=== PATIENT | male | born 1955 | race Caucasian/White ===

== ENCOUNTER 2017-01-24 08:18 | Outpatient (CLI) | payer OTHER ==
--- NOTE | 2017-01-24 14:34 | Diagnostic Imaging Report ---
DIANELYS VASQUEZ [facility] [address] [facility] [address] [address] Report Submission Date: Jan 24, 2017 8:56:30 AM CDT Patient Study Name: RICHMOND CHENG Date: Jan 24, 2017 8:30:30 AM CDT Modality Type: US Gender: M Description: US ABD LIMITED : 59 Institution: [facility] Physician: DIANELYS VASQUEZ Examination: Ultrasound gallbladder History: Epigastric discomfort Findings: Sonographic evaluation of the right upper quadrant demonstrates the gallbladder without stones or sludge. Gallbladder wall measures 2.3 mm. Common bile duct measures 2.6 mm. No intrahepatic biliary dilation. Liver demonstrates normal homogeneous echogenicity. No mass or cyst. Normal flow on color analysis. Normal Doppler waveforms. Right kidney measures 10.0 cm in length. No cortical mass. 4.0 mid renal cortical cyst. No hydronephrosis. Pancreatic region without gross irregularity. Impression: No gallstone or obstruction. Right renal cortical cyst. Electronically signed on Jan 24, 2017 8:56:30 AM CDT by: Db BAILEY
== END 2017-01-24 08:20 ==
LOC: RAD 08:18
PROVIDERS: ATTEND Family Medicine
DX: R10.11 Right upper quadrant pain (principal)
CPT/HCPCS: 76705

== ENCOUNTER 2017-02-08 08:05 | Outpatient (CLI) | payer OTHER ==
[2017-02-08 08:49] LABS: eGFR (African) > 60; eGFR (Non-African) > 60
--- NOTE | 2017-02-08 11:55 | Diagnostic Imaging Report ---
DIANELYS VASQUEZ - GOSIA [facility] [address] [facility] [address] [place] [address]. [id number] Report Submission Date: Feb 08, 2017 10:51:09 AM CDT Patient Study Name: RICHMOND CHENG Date: Feb 08, 2017 9:56:09 AM CDT Modality Type: CT\SR Gender: M Description: CT ABD & PELVIS W/ CON : 59 Institution: [facility] Physician: DIANELYS VASQUEZ - GOSIA Examination: CT Abdomen/pelvis History: Right abdominal discomfort Comparison exams: None available Technique: CT Abdomen/pelvis with IV protocol. Findings: Liver demonstrates diffuse low attenuation. No central enhancing lesion. Spleen, adrenals, pancreas, and gallbladder are without gross irregularity. No abnormal enhancement. Right renal cyst measuring 3.2 cm. No abnormal cortical enhancement. No suspicious calcifications. Ureters are nondilated in their course through the abdomen and pelvis. Bladder margin within normal limits. No gallstone. Abdominal aorta without aneurysmal dilation. Minimal peripheral atherosclerotic disease. Cardiac silhouette is not enlarged. No pericardial effusion. Contrast within the bowel. Few loops of mildly prominent small bowel within the left midabdomen few air-fluid levels. Stool within the large bowel limiting sensitivity. No mesenteric inflammatory changes or free fluid. Appendix is visualized and is without inflammatory changes. Sigmoid diverticula. No adjacent inflammation. Osseous structures demonstrate degenerative changes. Lung bases without infiltrate. No effusion. Impression: Few loops of mildly prominent small bowel with air fluid levels within the left midabdomen - suggestive for mild enteritis. No obstruction. No abdominal mass or inflammatory process. No gallstone. No renal calcifications or abnormal ureteric dilation. Fatty liver. Right renal cyst. Electronically signed on Feb 08, 2017 10:51:09 AM CDT by: Db BAILEY
== END 2017-02-08 08:06 ==
LOC: RAD 08:05
PROVIDERS: ATTEND Family Medicine
DX: R10.11 Right upper quadrant pain (principal)
CPT/HCPCS: 36415; 74177; 82565; Q9966; A9698

== ENCOUNTER 2017-02-28 12:17 | Day surgery (SDC) | payer OTHER ==
[~2017-02-28 12:17] MED LIST: LACTATED RINGERS 1,000 ML IV.SOLN IV ONE; LIDOCAINE HCL/PF 2% 100 MG/5 ML VIAL IJ ONE; PROPOFOL 200 MG/20 ML VIAL IV ONE; SALINE FLUSH 10 ML DISP.SYRIN IVF ONE
--- NOTE | 2017-03-01 10:06 | GI Report ---
REFERRING PHYSICIAN: Dr. Adolfo Bermeo PIPELINE WELDER: Jairo Nj MD PROCEDURE MEDICATION: Propofol as per anesthesia. INDICATIONS: Patient is a 62-year-old who has had about 6 months of discomfort in the right upper quadrant. He notes it particularly with driving a car when he is kind of in that position. Eating does not seem to make it better or worse. He does note it with sitting, though not with standing or walking. It is pressure. It is kind of constant, not a severe pain. It does not radiate to his back. He has had no change in bowel habits. He had his colon looked at 10 years ago and it was normal. He has occasional indigestion. He was tried on a PPI without change in this discomfort. He has never had jaundice or hepatitis. He never smoked. He had a CAT scan of the abdomen that showed basically a fatty liver and a right renal cyst. No gallstones. Ultrasound also showed a normal- appearing gallbladder. Patient has had no history of diabetes, though he has had some weight gain. He is 5 feet 10 inches and weighs 89 kilograms. Family history, his brother and father had prostate cancer. PROCEDURE PERFORMED: Endoscopy and biopsies. PROCEDURE: An Olympus video endoscope was passed through the esophagus under direct visualization. He has maybe grade 1 esophagitis of the GE junction. He does have a small sliding hiatal hernia. In the fundus, body, and antrum of the stomach, he has kind of an atrophic gastritis with an erythema, not much rugal folds. Really not much motility. Biopsies were taken for pathology. The pylorus was open. In the duodenal bulb and first and second part of the duodenum, the villi looked normal. The patient tolerated the procedure well. FINDINGS: Atrophic gastritis with hypomotility. Biopsies pending. DISCUSSION: Again, CAT scan and ultrasound suggest he may have non-alcohol fatty liver disease. RECOMMENDATIONS: 1. Pending the biopsies of his stomach, consider cutting out white carbohydrates. 2. Check him for diabetes, insulin resistance. 3. Weight loss of 10 to 15 pounds does take fat out of liver. 4. Further recommendations pending his response and biopsies. 5. He is due to have his colon re-looked at since it has been 10 years. cc: Dr. Adolfo BAILEY
== END 2017-02-28 12:18 ==
LOC: OPSURG 12:17
PROVIDERS: ATTEND Internal Medicine Gastroenterology
DX: K29.40 Chronic atrophic gastritis without bleeding (principal); K31.89 Other diseases of stomach and duodenum; R10.11 Right upper quadrant pain
CPT/HCPCS: 88305; J2001; J2704; J7120; 43239; S1016

== ENCOUNTER 2017-03-21 07:49 | Day surgery (SDC) | payer OTHER ==
[2017-03-21] MEDS ORDERED: PROPOFOL 200 MG/20 ML VIAL IV ONE (08:00)
[2017-03-21] MEDS ORDERED: SALINE FLUSH 10 ML DISP.SYRIN IVF ONE (08:00)
[2017-03-21] MEDS ORDERED: LACTATED RINGERS 1,000 ML IV.SOLN IV ONE (08:00)
[2017-03-21] MEDS ORDERED: LIDOCAINE HCL/PF 2% 100 MG/5 ML VIAL IJ ONE (08:00)
--- NOTE | 2017-03-21 13:31 | GI Report ---
REFERRING PHYSICIAN: Dr. Adolfo Bermeo [employer]: Jairo Nj MD PROCEDURE MEDICATION: Propofol as per anesthesia. INDICATIONS: This 62-year-old man is referred for a screening. His last colonoscopy was over 10 years ago. Over the last 6 months, he has developed a discomfort kind of in the right upper quadrant. He notes it kind of when he is in a car in the sitting position. Eating does not seem to make it better or worse. He had a CAT and ultrasound that showed no stones but did show some hepatic steatosis. Upper endoscopy showed some gastritis. His pain has persisted and since it has been over 10 years, he is referred for a screening colonoscopy. There has been no blood in his stool. Before the procedure, actually the patient did have a little vasovagal reaction with starting the IV. Temporarily, dropped his pressure and slowed down his pulse but it came back immediately. He apparently has had a vasovagal reaction a couple of times previously. PROCEDURE PERFORMED: Colonoscopy. PROCEDURE: An Olympus video colonoscope was advanced to the rectum. He does have some diverticular disease of the sigmoid and some in the descending colon and some in the transverse and even some diverticula in the ascending colon. No obvious diverticulitis. The appendiceal orifice looks normal. The terminal ileum looks normal. On slow withdrawal, the cecum, ascending colon, and transverse colon, there are a few scattered diverticula, no obvious intraluminal lesions noted. The descending colon and sigmoid, again, scattered diverticula, no diverticulitis. No additional lesions noted. Retroflexion of the rectum was normal. Patient tolerated the procedure well. FINDINGS: Moderate diverticula scattered actually throughout his whole colon but no diverticulitis. RECOMMENDATIONS: 1. Would increase fiber in the diet or add Benefiber or Metamucil daily. 2. Consider re-looking at his colon again in 10 years, sooner if clinically indicated. 3. Follow up with Dr. Bermeo. cc: Dr. Adolfo BAILEY
== END 2017-03-21 07:50 ==
LOC: OPSURG 07:49
PROVIDERS: ATTEND Internal Medicine Gastroenterology
DX: Z12.11 Encounter for screening for malignant neoplasm of colon (principal); K57.30 Diverticulosis of large intestine without perforation or abscess without bleeding
CPT/HCPCS: 45378; J2001; J2704; J7120; S1016

== ENCOUNTER 2019-02-26 14:40 | Outpatient (CLI) | payer OTHER ==
--- NOTE | 2019-02-26 22:20 | Diagnostic Imaging Report ---
PATIENT MR#: [id number] PATIENT PATIENT NAME: RICHMOND CHENG DATE OF : 1955 REFERRING PHYSICIAN: ELVIRA HUMPHRIES EXAM DATE: 02/26/2019 ACCESSION NUMBER: [id number] EXAM DESCRIPTION: BILAT FEET 3 VIEW CLINICAL HISTORY: CHRONIC BILATERAL FOOT PAIN COMPARISON: No study for comparison is available at the time of interpretation. TECHNIQUE: DX bilateral feet, 3 views each RIGHT Osseous structures: The osseous structures are normal with no evidence of fracture or dislocation. Pl reba calcaneal spur at the plantar fascia insertion, which may predispose to plantar fasciitis. Joint spaces: The bones are well aligned. No articular surface abnormality is noted. Soft tissues: There is normal appearance of the soft tissues with no radiopaque foreign body seen. LEFT Osseous structures: The osseous structures are normal with no evidence of fracture or dislocation. Pl reba calcaneal spur at the plantar fascia insertion, which may predispose to plantar fasciitis. Joint spaces: The bones are well aligned. Marginal osteophytes are noted at the 1st metatarsophalange al joint. Soft tissues: There is normal appearance of the soft tissues with no radiopaque foreign body seen. IMPRESSION: 1. Bilateral plantar calcaneal spurs which may predispose to plantar fasciitis. 2. Left 1st metatarsophalangeal arthrosis with marginal osteophyte formation. Read by: Dr. Yeison Aldana Transcribed by: Yeison Aldana Transcribed Date: 02/26/2019 10:19:21 PM Electronically signed by: Dr. Yeison Aldana Date signed: 02/26/2019 10:19:21 PM
== END 2019-02-26 14:45 ==
LOC: RAD 14:40
PROVIDERS: ATTEND Podiatrist Foot & Ankle Surgery
DX: M79.671 Pain in right foot (principal); M79.672 Pain in left foot

== ENCOUNTER 2019-03-01 13:23 | Outpatient (CLI) | payer OTHER ==
--- NOTE | 2019-03-05 15:18 | OP Clinic Progress Note ---
DATE OF VISIT: 03/01/2019 SUBJECTIVE: Bob is a 64-year-old male presenting to clinic today for follow up of bilateral foot pain. The pain seems to be suggestive of a possible Thomas's neuroma bilateral feet. We discussed the possibility of steroid injections in the third intermetatarsal space just proximal to the metatarsal heads to see if that provides any relief and for how long. The patient is agreeable and presents today to have that done today bilateral feet. The patient states that he can almost feel like a mass underneath that third intermetatarsal space plantarly. He understands the plan to do a steroid injection and see he does going forward. He does not admit to any fevers, chills, nausea, vomiting, shortness of breath or chest pain. OBJECTIVE: Vitals: Temperature 98.9 degrees Fahrenheit, heart rate 100, respiration rate 18, blood pressure 143/83. O2 saturation is 97% on room air. Vascular: 2+ DP and PT pulses, bilateral feet. Capillary refill time is less than 3 seconds to the toes bilaterally. There is no edema noted bilaterally. There is hair growth noted to bilateral toes. Dermatologic: There is no erythema or ecchymosis noted or any open lesions or any other skin abnormalities bilateral feet. Musculoskeletal: There is pain on palpation still noted directly plantar to the third intermetatarsal head space. There is also positive Carlos's to the right from previous exam. The patient has also had pain in the same area on the left foot. Per previous exam he had a negative Garret's test at toes 3 and 4 bilaterally. The left ankle range of motion is at 0 degrees of the knee extended and appears to about 10 degrees of the knee flexed on the left per previous exam as well. There is no pain on palpation noted on the metatarsal heads themselves plantar on the left foot. Neurologic: Light touch sensation is diminished at the plantar toes, three and four right, otherwise, intact of the toes bilaterally per previous exam. ASSESSMENT AND PLAN: 1. Thomas's neuroma, bilateral feet. 2. Right foot pain. 3. Left foot pain. 4. Gastrocnemius equinus, left lower extremity. PROCEDURE #1 AND #2: Steroid injection into the third intermetatarsal space left foot and right foot for possible neuroma. An alcohol swab was utilized to cleanse the area of the injection bilaterally and an injection consisting of 1 mL of 2% lidocaine plain, 1 mL also of 0.5% Marcaine plain, 0.5 mL of dexamethasone 4 mg/mL and 0.5 mL of Kenalog 40 mg/mL was injected into the third intermetatarsal space just proximal to the metatarsal heads in the plantar tissue. This was injected from dorsal to plantar. Bleeding was controlled with pressure and a Band-Aid was applied on bilateral injection sites. The patient tolerated the procedures well. A cold spray was utilized prior to injection as well after cleansing the area with an alcohol swab. The patient again tolerated these well and understands that we will have him call us in two weeks and let us know how he is doing and we will consider doing MRI if the pain has returned to look at the forefoot on the right at least, if not also the left with and without contrast and if the pain is gone at that time then we will continue giving it more time. The patient has no further questions or concerns and we will see him or await for his phone call in two weeks. As mentioned above, this identical steroid injection was performed on the right and left 3rd intermetatarsal space, with separate syringes each with the amount mentioned above. Dileep Yates D.P.M. /Accutype [id number] /mab MTDD
== END 2019-03-01 13:50 ==
LOC: POD 13:23
PROVIDERS: ATTEND Podiatrist Foot & Ankle Surgery
DX: G57.63 Lesion of plantar nerve, bilateral lower limbs (principal); M21.6X2 Other acquired deformities of left foot
CPT/HCPCS: 20600; 99213; G0463; J1100; J2001; J3301; J3490; A4554